=== PATIENT | male | born 1945 | race Caucasian/White ===

== ENCOUNTER 2016-12-15 16:27 | Outpatient (CLI) | payer MEDICARE, OTHER ==
[2016-02-07 09:37] VITALS: BP 112/69
[2016-12-15 17:02] LABS: BASOPHILS % 0.8 (0.0-1.5); EOSINOPHILS % 2.2 % (0.0-6.8); LYMPHOCYTES # 2.1 # k/uL (0.6-4.0); MEAN CORPUSCULAR HEMOGLOBIN 30.3 pg (28.0-34.0); MONOCYTES # 0.3 # k/uL (0.0-0.9); MONOCYTES % 5.1 % (0.0-11.0); NEUTROPHILS # 3.9 # k/uL (1.4-7.7)
[2016-12-15 17:21] LABS: eGFR (African) > 60; eGFR (Non-African) > 60
--- NOTE | 2016-12-15 17:32 | Diagnostic Imaging Report ---
[facility] [address] [facility].[address] [address] Report Submission Date: Dec 15, 2016 5:24:24 PM MATERIAL CLERK Patient Study Name: REGAN BARAJAS Date: Dec 15, 2016 4:54:13 PM MATERIAL CLERK Modality Type: CR Gender: M Description: CHEST : 47 Institution: [facility] Physician: DAVID GOMES Chest - two views Clinical history: Dyspnea on exertion. Findings: Examination of the chest in PA and lateral views with comparison to examination of 02/01/2012 demonstrates lungs to be clear. Cardiac silhouette is stable and the aorta is atherosclerotic. The bony thorax is intact. Impression: 1. Aortic atherosclerosis. 2. No active disease. Electronically signed on Dec 15, 2016 5:24:24 PM MATERIAL CLERK by: Riley FUNES
== END 2016-12-15 16:30 ==
LOC: RT 16:27
PROVIDERS: ATTEND Family Medicine
DX: R06.09 Other forms of dyspnea (principal); E11.9 Type 2 diabetes mellitus without complications; E11.59 Type 2 diabetes mellitus with other circulatory complications
CPT/HCPCS: 36415; 71020; 80053; 83036; 83880; 84484; 85025; 86803

== ENCOUNTER 2017-05-07 08:44 | Outpatient (CLI) | payer MEDICARE, OTHER ==
[2016-02-07 09:37] VITALS: BP 112/69
== END 2017-05-07 08:45 ==
LOC: LAB 08:44
PROVIDERS: ATTEND Family Medicine
DX: E11.9 Type 2 diabetes mellitus without complications (principal)
CPT/HCPCS: 36415; 83036

== ENCOUNTER 2017-06-01 16:20 | Outpatient (CLI) | payer MEDICARE, OTHER ==
[2016-02-07 09:37] VITALS: BP 112/69
== END 2017-06-01 16:22 ==
LOC: LABRHC 16:20
PROVIDERS: ATTEND Physician Assistant
DX: L02.91 Cutaneous abscess, unspecified (principal)
CPT/HCPCS: 87070

== ENCOUNTER 2017-08-11 07:35 | Outpatient (CLI) | payer MEDICARE, OTHER ==
[2016-02-07 09:37] VITALS: BP 112/69
[2017-08-11 08:14] LABS: eGFR (African) > 60; eGFR (Non-African) > 60
== END 2017-08-11 07:36 ==
LOC: LAB 07:35
PROVIDERS: ATTEND Family Medicine
DX: E11.9 Type 2 diabetes mellitus without complications (principal); I25.10 Atherosclerotic heart disease of native coronary artery without angina pectoris
CPT/HCPCS: 36415; 80053; 80061; 83036

== ENCOUNTER 2018-04-08 10:27 | Outpatient (CLI) | payer MEDICARE, OTHER ==
[2016-02-07 09:37] VITALS: BP 112/69
== END 2018-04-08 10:30 ==
LOC: LAB 10:27
PROVIDERS: ATTEND Family Medicine
DX: E11.9 Type 2 diabetes mellitus without complications (principal)
CPT/HCPCS: 36415; 83036

== ENCOUNTER 2018-06-13 07:27 | Emergency (ER) | payer MEDICARE, OTHER ==
[2018-06-13] MEDS ORDERED: NITROGLYCERIN 0.4 MG TAB.SUBL SL ONE ×3 (07:33→07:45)
[2018-06-13] MEDS ORDERED: ASPIRIN 81 MG CHEW TAB ONE (07:33)
[2018-06-13] MEDS ORDERED: ASPIRIN 81 MG CHEW TAB PO ONE (07:34)
[2018-06-13] MEDS: NITROGLYCERIN 0.4 MG TAB.SUBL SL ONE ×2 (07:34→08:00)
[2018-06-13] MEDS ORDERED: NOREPINEPHRINE BITARTRATE 1 MG/ML 4ML IV ONE (07:43)
[2018-06-13 07:52] LABS: BASOPHILS % 0.4 (0.0-1.5); EOSINOPHILS % 3.4 % (0.0-6.8); MEAN CORPUSCULAR HEMOGLOBIN 30.7 pg (28.0-34.0); MEAN CORPUSCULAR VOLUME 90.1 fl (80.0-100.0); MONOCYTES % 5.3 % (0.0-11.0); NEUTROPHILS # 3.3 # k/uL (1.4-7.7)
[2018-06-13 07:58] LABS: eGFR (African) > 60; eGFR (Non-African) > 60
[2018-06-13] MEDS ORDERED: NITROGLYCERIN 2% 1GM OINT PACKET...G. TD ONE (09:29)
[2018-06-13 09:41] LABS: TROPONIN T <0.010 ng/mL (<0.010)
--- NOTE | 2018-06-13 09:43 | ED Physician Documentation ---
Chest Pain - HISTORIAN Historian: patient, spouse - HPI Stated Complaint: Chest Pain Chief Complaint: General Adult Onset: hours (0700) Timing: sudden onset Duration: constant Last known Well Date: 06/13/18 Last Known Well Time: 06:45 Last known Well Code/Unknown Code: Known Context: activity (working in the yard; watering plants) Severity: moderate (4-5/10) Quality: pressure, tightness Chest Pain Radiation: shoulders (left shoulder) Chest Pain Signs/Symptoms: denies: nausea, vomiting, diaphoresis, cool extremities, dizziness, dyspnea, tachypnea, tachycardia, hypotension, palpitations, weakness Worsened By: nothing Relieved By: nothing Further Comments: yes (73 year old male patient presents with complaints of chest pain. Patient states he was out in the yard working at 0700, watering plants when CP started. Reports SOB and diaphoresis with CP, radiation to left shoulder. Rated pain 5/10; took 1 nitro. Pain did not resolve, came to ER. On arrival patient rated pain 4/10.) - ROS CONST: none MS/LYMPH: none GI/: none. denies: vomiting, nausea EYES/ENT: none SKIN/ENDO: none NEURO/PSYCH: none - PAST HX TX risk factors: hypertension, diabetes Type 2, hyperlipidemia, cardiac disease (LAD 90% lesion - stented in 2017, RCA 70-80%), AMI TAD/AAA risk factors: none Neuro deficit: none GI disease: none Lung disease: none Surgeries/Procedures: cardiac stent (2017) Allergies/Adverse Reactions: Allergies Allergy/AdvReac Type Severity Reaction Status Date / Time cephalexin monohydrate Allergy Intermediate Hives Verified 06/13/18 08:08 [From Keflex] Home Medications: Ambulatory Orders Medication Instructions Recorded Tamsulosin HCl [Flomax] 0.8 mg PO [id number] #14 cap.er.24h 04/08/15 - SOCIAL HX Smoking History: non-smoker - FAMILY HX Family HX: denies: none - VITAL SIGNS Vital Signs: Vital Signs Temp Pulse Resp BP Pulse Ox 97.1 F L 82 18 120/68 96 06/13/18 07:30 06/13/18 07:30 06/13/18 07:30 06/13/18 07:30 06/13/18 07:30 - REVIEWED ASSESSMENTS Nursing Assessment Reviewed: Yes Vitals Reviewed: Yes Progress - Progress Progress: Chest pain resolved after 3rd nitro. Nitro paste applied. Troponin not available at present. CPK and CK-MB ordered. 919 Reviewed lab and EKG results with patient and . 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 929 Call to [facility]. Patient accepted by Dr Eaton. - EKG/XRAY/CT EKG: rhythm (Rate 82, no acute changes. ) ED Results Lab/Radiology - Lab Results Lab Results: Lab Results 06/13/18 06/13/18 06/13/18 07:45 07:45 07:45 WBC RBC Hgb Hct MCV MCH MCHC RDW Plt Count Neut % (Auto) Lymph % (Auto) [place] % (Auto) Eos % (Auto) Baso % (Auto) Neut # (Auto) Lymph # (Auto) [place] # (Auto) Eos # (Auto) Baso # (Auto) Reactive Lymphs % Reactive Lymphs # Sodium 139 mmol/L mmol/L (136-145) Potassium 4.2 mmol/L mmol/L (3.5-5.1) Chloride 104 mmol/L mmol/L (98-107) Carbon Dioxide 24 mmol/L mmol/L (22-30) BUN 17 mg/dL mg/dL (9-20) Creatinine 0.80 mg/dL mg/dL (0.66-1.25) Est GFR ( Amer) > 60 (60 - ) Est GFR (Non-Af Amer) > 60 (60 - ) Glucose 136 mg/dL H mg/dL (74-106) Calcium 9.5 mg/dL mg/dL (8.4-10.2) Total Bilirubin 0.2 mg/dL mg/dL (0.2-1.3) AST 18 U/L U/L (15-46) ALT 35 U/L U/L (13-69) Alkaline Phosphatase 104 U/L U/L (38-126) Creatine Kinase 160 U/L U/L (55-170) CK-MB (CK-2) 0.9 ng/mL ng/mL (0.0-5.6) Total Protein 7.6 g/dL g/dL (6.3-8.2) Albumin 4.4 g/dL g/dL (3.5-5.0) 06/13/18 07:45 WBC 5.90 K/ul K/ul (4.00-12.00) RBC 4.32 M/ul M/ul (3.90-5.20) Hgb 13.2 g/dL g/dL (12.0-18.0) Hct 38.9 % % (37.0-53.0) MCV 90.1 fl fl (80.0-100.0) MCH 30.7 pg pg (28.0-34.0) MCHC 34.0 g/dL g/dL (30.0-36.0) RDW 13.0 % % (11.3-14.3) Plt Count 259 K/mm3 K/mm3 (130-400) Neut % (Auto) 55.7 % % (39.0-79.0) Lymph % (Auto) 33.6 % % (16.0-50.0) [place] % (Auto) 5.3 % % (0.0-11.0) Eos % (Auto) 3.4 % % (0.0-6.8) Baso % (Auto) 0.4 (0.0-1.5) Neut # (Auto) 3.3 # k/uL # k/uL (1.4-7.7) Lymph # (Auto) 2.0 # k/uL # k/uL (0.6-4.0) [place] # (Auto) 0.3 # k/uL # k/uL (0.0-0.9) Eos # (Auto) 0.2 # k/uL # k/uL (0.0-0.6) Baso # (Auto) 0.0 # k/uL # k/uL (0.0-0.5) Reactive Lymphs % 1.6 % % (0.0-5.0) Reactive Lymphs # 0.1 # k/uL # k/uL (0.0-0.8) Sodium Potassium Chloride Carbon Dioxide BUN Creatinine Est GFR ( Amer) Est GFR (Non-Af Amer) Glucose Calcium Total Bilirubin AST ALT Alkaline Phosphatase Creatine Kinase CK-MB (CK-2) Total Protein Albumin - Radiology Radiology Impressions: AP chest CLINICAL HISTORY: Chest pain. FINDINGS: Examination of the chest single AP view demonstrates minimal discoid changes in the right base. The lungs are free of coalescent infiltrate. Cardiac silhouette is within normal limits and the aorta is atherosclerotic. 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 Aortic atherosclerosis. Electronically signed on Jun 13, 2018 7:56:00 AM CDT by: Riley Guillen - Orders Orders: ED Orders Category Date Time Status CHEST 1VIEW [RAD] Stat Exams 06/13/18 07:35 Taken CBC/PLATELET/DIFF Stat Lab 06/13/18 07:45 Completed CKMB Stat Lab 06/13/18 07:45 Completed CMP Stat Lab 06/13/18 07:45 Completed CREATINE KINASE Stat Lab 06/13/18 07:45 Completed TROPONIN T (Amira) Stat Lab 06/13/18 07:45 Received Aspirin Med 06/13/18 07:33 Discontinued 324 mg .ROUTE .STK-MED ONE Aspirin Med 06/13/18 07:34 Discontinued 324 mg PO NOW ONE Nitroglycerin [Nitro-Bid] Med 06/13/18 09:29 Once 1 appl TD NOW ONE Nitroglycerin [Nitroquick] Med 06/13/18 07:34 Discontinued 0.4 mg SL NOW ONE Nitroglycerin [Nitroquick] Med 06/13/18 07:40 Once 0.4 mg SL NOW ONE Nitroglycerin [Nitroquick] Med 06/13/18 07:45 Once 0.4 mg SL NOW ONE Nitroglycerin [Nitroquick] Med 06/13/18 07:33 Discontinued 1.2 mg SL .STK-MED ONE Norepinephrine Bitartrate [Levophed] Med 06/13/18 07:43 Discontinued 4 mg IV NOW ONE Oxygen Daily Oxygen 06/13/18 07:45 Ordered Chest Pain Physical Exam - EXAM General Appearance: moderate distress EENT: eye inspection normal, ENT inspection normal, pharynx normal, no signs of dehydration, KEVIN, no nystagmus, TM's nml Respiratory: no resp. distress, nml breath sounds, other (chest pain is not reproducible with palpation) CVS: reg. rate & rhythm, no murmur, no gallop, no friction rub, pulses full, pulses equal Abdomen: soft, no organomegaly, normal bowel sounds, no abdominal bruit, no distension Skin: normal color, warm/dry, NR, INT, DR Extremities: non-tender, normal range of motion, no evidence of injury, no edema , J, DONOR TECHNICIAN Neuro: oriented X3, CN's nml as tested, motor nml, sensation nml, mood/affect nml Discharge Clincal Impression: Ruled out for myocardial infarction Chest pain Qualifiers: Chest pain type: unspecified Qualified Code(s): R07.9 - Chest pain, unspecified Condition: Stable Disposition: 02 XFER SHT-TRM HOSP Decision to Admit: NO Decision Time: 09:53
[2018-06-13 10:32] VITALS: BP 119/71
--- NOTE | 2018-06-13 10:57 | Diagnostic Imaging Report ---
RAMSES VALENCIA (PROMOTIONS REPRESENTATIVE) - ER [facility] [address] [facility] [address] [place], [place]. [address] Report Submission Date: Jun 13, 2018 7:56:00 AM CDT Patient Study Name: REGAN BARAJAS Date: Jun 13, 2018 7:33:40 AM CDT Modality Type: DX Gender: M Description: CHEST : 47 Institution: [facility] Physician: RAMSES VALENCIA (PROMOTIONS REPRESENTATIVE) - ER AP chest CLINICAL HISTORY: Chest pain. FINDINGS: Examination of the chest single AP view demonstrates minimal discoid changes in the right base. The lungs are free of coalescent infiltrate. Cardiac silhouette is within normal limits and the aorta is atherosclerotic. 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 Aortic atherosclerosis. Electronically signed on Jun 13, 2018 7:56:00 AM CDT by: Riley FUNES
== END 2018-06-13 10:18 | disposition short-term general hospital (02) ==
LOC: ED 07:27
DX: R07.9 Chest pain, unspecified (principal)
CPT/HCPCS: 71045; 80053; 82550; 82553; 84484; 85025; 96374; 99285; S1016

== ENCOUNTER 2018-11-11 16:20 | Emergency (ER) | payer MEDICARE, OTHER ==
--- NOTE | 2018-11-11 16:29 | ED Physician Documentation ---
Hip Injury/Pain - HISTORIAN Historian: patient - HPI Stated Complaint: left hip pain Chief Complaint: Hip Pain Additional Information: Pateint presents to ED with left hip pain after stepping off at step wrong while walking from the garage to his house. He states it is a sharp stabbing pain, 6/10, nonradiating in the posterior hip left gluteal region. He denies falling or any surgeries to the hip Onset: hours (1) Where: home Severity: moderate Duration: worse Context: tripped Symptoms Prior to Fall: denies: fever Other Injuries: none Subsequent Symptoms: denies: sensory loss - ROS CONST: denies: weakness RESP: denies: shortness of breath GI/: denies: abdominal pain EYES/ENT: none MS/SKIN/LYMPH: denies: ankle swelling, leg swelling NEURO/PSYCH: denies: confusion - PAST HX Cardiac Disease: none PE Risk Factors: none Other History: denies: hip fracture Surgeries/Procedures: denies: hip surgery Allergies/Adverse Reactions: Allergies Allergy/AdvReac Type Severity Reaction Status Date / Time cephalexin monohydrate Allergy Intermediate Hives Verified 11/11/18 16:36 [From Keflex] Home Medications: Ambulatory Orders Medication Instructions Recorded Atorvastatin Calcium 1 tab PO DAILY 11/11/18 Tamsulosin HCl [Flomax] 0.4 mg PO [id number] 11/11/18 - SOCIAL HX Smoking History: non-smoker Alcohol Use: none Drug Use: none - FAMILY HX Family History: No - VITAL SIGNS Vital Signs: Vital Signs Temp Pulse Resp BP Pulse Ox 97.0 F L 86 16 115/81 97 11/11/18 16:25 11/11/18 16:25 11/11/18 16:25 11/11/18 16:25 11/11/18 16:25 - REVIEWED ASSESSMENTS Nursing Assessment Reviewed: Yes ED Results Lab/Radiology - Radiology Radiology Impressions: Examination: Plain film pelvis/left hip History: Hip discomfort Comparison exams: None provided Findings: 2 views of the pelvis/left hip demonstrates articular degenerative spurring. Narrowed joint spaces. No fracture no dislocation. Vascular calcifications. Impression: Degenerative changes. No evidence for acute cortical abnormality. Electronically signed on Nov 11, 2018 5:04:12 PM HEMMING AND TACKING MACHINE OPERATOR by: Bandar Boo - Orders Orders: ED Orders Category Date Time Status LT HIP 2VIEW COMPLETE [RAD] Stat Exams 11/11/18 Ordered Hip Injury/Pain Physical Exam - EXAM General Appearance: no acute distress, alert Extremities: non-tender, nml ROM, hip pain on leg movement EENT: KEVIN Neck: non-tender Respiratory: chest non-tender, breath sounds nml CVS: reg rate & rhythm, heart sounds normal Abdomen: non-tender Back: non-tender Skin: warm/dry Neuro/Psych: oriented x3 Discharge Clincal Impression: Hip pain, left Referrals: Teresa Mcdaniel MD [Primary Care Provider] - 2 Days Additional Instructions: 1. Tylenol and/or ibuprofen as needed for pain 2. Stay active. Stretch and walk daily 3. Follow up with PCP within 1 week 4. Return to ED for new or worsening symptoms. Condition: Stable Disposition: 01 HOME, SELF-CARE Decision to Admit: NO Date of Decison to Admit: 11/11/18 Decision Time: 17:05
[2018-11-11 16:40] VITALS: BP 115/81
--- NOTE | 2018-11-12 05:40 | Diagnostic Imaging Report ---
KIRSTEN PATEL [facility] [address] [facility] [address] [place] [address]. [id number] Report Submission Date: Nov 11, 2018 5:04:12 PM KICKBOXING INSTRUCTOR Patient Study Name: REGAN BARAJAS Date: Nov 11, 2018 4:36:54 PM KICKBOXING INSTRUCTOR Modality Type: DX Gender: M Description: PELVIS : 47 Institution: [facility] Physician: KIRSTEN PATEL Examination: Plain film pelvis/left hip History: Hip discomfort Comparison exams: None provided Findings: 2 views of the pelvis/left hip demonstrates articular degenerative spurring. Narrowed joint spaces. No fracture no dislocation. Vascular calcifications. Impression: Degenerative changes. No evidence for acute cortical abnormality. Electronically signed on Nov 11, 2018 5:04:12 PM KICKBOXING INSTRUCTOR by: Bandar FUNES
== END 2018-11-11 17:10 | disposition home or self-care (01) ==
LOC: ED 16:20
DX: M25.552 Pain in left hip (principal)
CPT/HCPCS: 99282; 99283